=== PATIENT | female | born 1955 | race Caucasian/White ===

== ENCOUNTER 2018-04-05 21:00 | Inpatient (IN) ==
[2018-04-05 21:33] LABS: Basophils # 0.1 K/mm3 (0-0.2); Basophils % 0.2 % (0.1-2.0); Eosinophils % 0.1 % (0.1-12.0); Hematocrit 40.2 % (37.0-47.0); Lymphocytes # 1.6 K/mm3 (0.7-4.5); Lymphocytes % 6.6 K/mm3 (10-50); Mean Corpuscular HGB Conc 32.4 g/dL (31.8-35.4); Mean Corpuscular Hemoglobin 28.3 pg (27.0-31.2); Mean Corpuscular Volume 87.4 fl (81-99); Mean Platelet Volume 11.2 fl (7.4-10.4); Monocytes # 0.8 K/mm3 (0.1-1.0); Monocytes % 3.4 % (1.7-9.3); Neutrophils # 21.6 K/mm3 (1.8-7.8); Neutrophils % 89.7 % (37.0-80.0); Platelet Count 75 K/mm3 (142-424); White Blood Count 24.1 K/mm3 (4.8-10.8)
[2018-04-05 21:41] LABS: Lymphocytes % 11 % (10-50); Neutrophils % 76 % (42-76); RBC Morphology Normal; Total Cells Counted 100
[2018-04-05 21:46] LABS: Albumin Level 3.1 gm/dL (3.4-5.0); Albumin/Globulin Ratio 0.8 (1.1-1.8); Anion Gap 13.9 mEq/L (5-15); Bilirubin,Total 1.7 mg/dL (0.2-1.0); Calcium 8.8 mg/dL (8.5-10.1); Globulin 4.1 gm/dl (1.3-3.2); Potassium 3.9 mmoL/L (3.5-5.1); Total Protein,Serum 7.2 gm/dL (6.4-8.2)
[2018-04-05 22:45] LABS: Microscopic, Urine URINE MICROSCOPIC (MICROSCOPIC)
[2018-04-05 22:47] LABS: Appearance,Urine CLEAR (Clear); Bilirubin,Urine Negative (Negative); Blood, Urine Negative (Negative); Color,Urine YELLOW (Yellow); Glucose,Urine (UA) Negative (Negative); Ketones,Urine TRACE (Negative); Leukocyte Esterase,Urine Negative (Negative); Protein,Urine Negative (Negative); Specific Gravity, Urine 1.015 (1.005-1.030); Urobilinogen,Urine 0.2 EU/dl (0.2)
--- NOTE | 2018-04-05 23:10 | Emergency Department Note ---
ED Disposition Clinical Impression: Diabetes mellitus, insulin dependent (IDDM), controlled, Renal insufficiency, Hemoptysis CAP (community acquired pneumonia) Qualifiers: Laterality: left Lung location: upper lobe of lung Qualified Code(s): J18.1 - Lobar pneumonia, unspecified organism CVA (cerebrovascular accident) Qualifiers: CVA mechanism: unspecified Qualified Code(s): I63.9 - Cerebral infarction, unspecified Disposition: Admitted as Observation Condition on Discharge: Good Referrals: Albaro King [Primary Care Provider] - - Critical Care Critical Care Time: No Attestation: On 04/05/18, the high probability of a clinically significant, sudden or life threatening deterioration of the following system(s) required my full and direct attention, intervention and personal management. The time I documented below is in addition to time spent performing reported procedures but includes the following listed in this critical care notation. Medical Decision Making - Medical Records Medical records reviewed: Yes: I reviewed the patient's medical records. - Jack Inquiry Pt receiving controlled substance: No Vital Signs: 04/05/18 21:05 04/05/18 21:54 04/05/18 22:22 Temperature 99.6 F Temperature Source Oral Pulse Rate [Right Brachial] 89 84 72 Respiratory Rate 14 16 16 Blood Pressure [Right Arm] 148/73 121/84 143/68 Blood Pressure Mean [Right Arm] 98 96 93 Blood Pressure Source [Right Arm] Blood Pressure Position [Right Arm] 02 Sat by Pulse Oximetry 97 97 92 L Oxygen Delivery Method Room Air 04/05/18 22:29 04/05/18 23:30 Temperature 101.0 F H 99.9 F H Temperature Source Rectal Oral Pulse Rate [Right Brachial] 89 78 Respiratory Rate 12 16 Blood Pressure [Right Arm] 143/68 114/56 Blood Pressure Mean [Right Arm] 93 75 Blood Pressure Source [Right Arm] Automatic Cuff Blood Pressure Position [Right Arm] Supine 02 Sat by Pulse Oximetry 92 L 96 Oxygen Delivery Method Room Air Room Air - Lab Data Lab results reviewed: Yes: I reviewed the patient's lab results. Lab Results 04/05/18 21:10: WBC 24.1 H*, RBC 4.60, Hgb 13.0, Hct 40.2, MCV 87.4, MCH 28.3, MCHC 32.4, RDW 14.0, Plt Count 75 L, MPV 11.2 H, Neut % (Auto) 89.7 H, Lymph % (Auto) 6.6 L, [place] % (Auto) 3.4, Eos % (Auto) 0.1, Baso % (Auto) 0.2, Neut # (Auto) 21.6 H, Lymph # (Auto) 1.6, [place]ayer # (Auto) 0.8, Eos # (Auto) 0.0, Baso # (Auto) 0.1, Total Counted 100, Neutrophils % (Manual) 76, Band Neutrophils % 13.0 H, Lymphocytes % (Manual) 11, Platelet Estimate Slight decrease, RBC Morphology Normal 04/05/18 21:10: Sodium 139, Potassium 3.9, Chloride 102, Carbon Dioxide 27, Anion Gap 13.9, BUN 17, Creatinine 1.22 H, Estimated Creat Clear 65, Estimated GFR 45 L, Est GFR ( Amer) 54 L, Glucose 146 H, Calcium 8.8, Total Bilirubin 1.7 H, AST 6 L, ALT 15, Alkaline Phosphatase 86, Total Protein 7.2, Albumin 3.1 L, Globulin 4.1 H, Albumin/Globulin Ratio 0.8 L 04/05/18 21:10: Lactate 2.9 H 04/05/18 21:10: Troponin I < 0.02 04/05/18 22:40: Urine Color Yellow, Urine Appearance Clear, Urine pH 6.0, Ur Specific [place] 1.015, Urine Protein Negative, Urine Glucose (UA) Negative, Urine Ketones Trace, Urine Blood Negative, Urine Nitrate Negative, Urine Bilirubin Negative, Urine Urobilinogen 0.2, Ur Leukocyte Esterase Negative, Urine WBC 3-5, Ur Squamous Epith Cells 3-5 Result diagrams: 04/05/18 21:10 04/05/18 21:10 Orders (Tests/Meds): ED MEDICATIONS Generic Name Dose Route Start Last Admin Trade Name Freq PRN Reason Stop Dose Admin Sodium Chloride 3 ml 04/05/18 21:14 Sodium Chloride 3% 15ml Neb IH 05/05/18 21:13 ONCE PRN INDUCE SPUTUM COLLECTION Discontinued Medications Generic Name Dose Route Start Last Admin Trade Name Freq PRN Reason Stop Dose Admin Acetaminophen 1,000 mg 04/05/18 22:36 04/05/18 22:37 Tylenol 500mg Tablet PO 04/05/18 22:37 1,000 mg ONCE ONE Administration Sodium Chloride 1,000 mls @ 999 mls/hr 04/05/18 21:15 04/05/18 21:15 Sod Chlor 0.9% 1000ml Bag IV 04/05/18 22:15 999 mls/hr .[id number] MARIANA Administration Methylprednisolone Sodium Succinate 125 mg 04/05/18 21:14 04/05/18 21:15 Solu-Medrol 125mg/2ml Vial IV 04/05/18 21:15 125 mg ONCE ONE Administration ORDERS Category Date Time Status CTA Chest [CT angio chest] Stat Cat Scan 04/05/18 22:03 Taken XR chest portable Stat Exams 04/05/18 21:14 Taken UA [Urinalysis and Microscopic] Stat Lab 04/05/18 22:40 Ordered Blood Culture Stat Micro 04/05/18 21:10 Ordered Sputum Culture & Gram Stain Stat Micro 04/05/18 22:23 Ordered 12-lead EKG Request [ECG Request by /Sarah] Stat Y 04/05/18 21:19 Ordered - Radiology Data #1 Image(s): Chest Image Reviewed: Yes I reviewed the patient's radiology image Preliminary Findings: Abnormal (lt sided changes ) - CT Data CT Scan: Chest Time Received: 23:[address] Reviewed: Yes: I have viewed the radiologist's interpretation Preliminary Findings: Abnormal (see report ) - ECG Data Tracing #1 I reviewed this ECG and interpreted as documented below: Normal Sinus Rhythm: Yes Ischemic changes: non-specific ST-T wave changes - Physician Consults Physician Consulted: sound Reason -: Admission Resp/SOB HPI - General Chief Complaint: Upper Respiratory Infection Stated Complaint: Coughing up blood Time Seen by Provider: 04/05/18 21:10 Mode of Arrival: Wheelchair Source of Information: Patient, Relative, Medical Record Limitations: Physical Limitations Description of Symptoms (Recalled from ER Triage Doc. by RN): Coughing up blood since this afternoon. Reports pt has had ear pain, and sinus pressure/congestion for about a week. Reports cough as well. - History of Present Illness pt with progressive cough with episode of hemoptysis tonight - has sig hx of iddm and prev cva with lt sided residual MD Complaint: shortness of breath, cough Onset (ago): day(s) Context: recent illness Severity: moderate Known history of: diabetes, recurrent pneumonia Associated symptoms: hemoptysis Treatment prior to arrival: none - Related Data Home oxygen amount: none Home Medications Medication Instructions Recorded Confirmed Amlodipine Besylate [Amlodipine 10 mg PO DAILY 04/05/18 04/05/18 10mg Tab] Atorvastatin Calcium [Atorvastatin 40 mg PO HS 04/05/18 04/05/18 40mg Tab] Citalopram Hydrobromide 20 mg PO DAILY 04/05/18 04/05/18 [Citalopram HBr] Gabapentin [Gabapentin 300mg Cap] 300 mg PO BID 04/05/18 04/05/18 Hydralazine HCl [Hydralazine HCl 50 mg PO DAILY 04/05/18 04/05/18 25mg Tablet] Insulin Glargine,Hum.rec.anlog 15 unit SQ HS 04/05/18 04/05/18 [Basaglar Kwikpen U-100] Lisinopril [Lisinopril 10mg Tab] 10 mg PO DAILY 04/05/18 04/05/18 Metoprolol Tartrate 100 mg PO DAILY 04/05/18 04/05/18 Allergies Allergy/AdvReac Type Severity Reaction Status Date / Time No Known Allergies Allergy Verified 04/05/18 21:10 - Well's Criteria PE Score Clinical signs/symptoms of DVT: No PE is #1 diagnosis or equally likely: Yes Heart rate is > 100: No Immobile at least 3 days, or surgery in past 4 wks: No Previously, obj. diagnosed PE or DVT: No Hemoptysis: Yes Malignancy w/Rx within 6mo, or palliative: No PE Score: 4 [facility] History I have reviewed the patient's past medical history: Yes Medical History: Reports:: Diabetes Mellitus Type 2 Denies:: Cancer, Diabetes Mellitus Type 1, MRSA Amputation: No Fractures: No - Social History Smoking Status: Never smoker Alcohol Intake: never - Psychiatric History Expresses thoughts of harming self/others: None Suicide Plan Description: No Plan ROS Obtained: Yes All systems reviewed & no additional complaints - Constitutional Constitutional: Denies headache(s) - Eyes Eyes: Denies change in vision - ENT Ears, Nose, Mouth, and Throat: Denies sore throat - Cardiovascular Cardiovascular: Denies chest pain - Respiratory Respiratory: Yes as per HPI, Yes cough, Yes dyspnea, Yes coughing up blood - Gastrointestinal Gastrointestingal: Denies: abdominal pain, diarrhea, nausea, vomiting - Genitourinary Female Genitourinary: Denies hematuria - Musculoskeletal Musculoskeletal: Denies joint pain, Denies limited range of motion - Integumentary/Breasts Skin/Breast: Denies rash - Neurologic Neurologic: Denies seizure-like activity, Reports other (s/p cva ) Physical Exam - General General appearance: in no apparent distress - Head Head exam: normocephalic - Eye Eye exam: Present: PERRL, EOMI - ENT ENT exam: Present: mucous membranes dry - Neck Neck exam: Present: trachea midline - Respiratory Respiratory exam: Present: other (dec bs bilat ). Absent: respiratory distress - Cardiovascular Cardiovascular exam: Present: regular rate, systolic murmur, +S4 - Abdominal Exam Abdominal exam: Present: soft - Extremities Exam Extremities exam: Absent: calf tenderness - Neurological Exam Neurological exam: Present: alert, CN II-XII intact - Psychiatric Psychiatric exam: Present: normal affect - Skin Skin exam: Absent: rash
[2018-04-06 06:12] LABS: Anion Gap 10.6 mEq/L (5-15); Blood Urea Nitrogen 18 mg/dL (7-18); Calcium 8.3 mg/dL (8.5-10.1); Carbon Dioxide 25 mmol/L (21.0-32.0); Chloride 107 mmol/L (98-107); Glucose 186 mg/dL (74-106); Potassium 3.6 mmoL/L (3.5-5.1); Sodium 139 mmol/L (136-145)
[2018-04-06 06:19] LABS: Basophils % 0.1 % (0.1-2.0); Eosinophils # 0.2 K/mm3 (0.0-0.4); Eosinophils % 0.7 % (0.1-12.0); Hematocrit 37.2 % (37.0-47.0); Hemoglobin 12.1 g/dL (12.2-16.2); Lymphocytes % 3.8 K/mm3 (10-50); Mean Corpuscular HGB Conc 32.6 g/dL (31.8-35.4); Mean Corpuscular Hemoglobin 28.4 pg (27.0-31.2); Mean Corpuscular Volume 87.2 fl (81-99); Mean Platelet Volume 11.7 fl (7.4-10.4); Monocytes # 0.5 K/mm3 (0.1-1.0); Monocytes % 2.2 % (1.7-9.3); Neutrophils # 23.3 K/mm3 (1.8-7.8); Neutrophils % 93.3 % (37.0-80.0); Platelet Count 103 K/mm3 (142-424); Red Blood Count 4.26 M/mm3 (4.20-5.40); White Blood Count 24.9 K/mm3 (4.8-10.8)
--- NOTE | 2018-04-06 07:20 | Pharmacy Consult Notes ---
[facility] Pharmacy VTE Monitoring - Patient Demographics Admission date: 04/06/18 Report Date: 04/06/18 Time: 07:20 Allergies/Adverse Reactions: Patient Allergies No Known Allergies Allergy (Verified 04/05/18 21:10) Height: 1.5 m Weight: 76.43 kg Patient Problems: Current Active Problems CAP (community acquired pneumonia) (Acute) Diabetes mellitus, insulin dependent (IDDM), controlled (Acute) Renal insufficiency (Acute) Hemoptysis (Acute) CVA (cerebrovascular accident) (Acute) - VTE Risk Labs: VTE Related Lab Results Hgb 12.1 g/dL (12.2-16.2) L 04/06/18 05:25 Hct 37.2 % (37.0-47.0) 04/06/18 05:25 Plt Count 103 K/mm3 (142-424) L D 04/06/18 05:25 BUN 18 mg/dL (7-18) 04/06/18 05:25 Creatinine 0.97 mg/dL (0.55-1.02) D 04/06/18 05:25 Estimated Creat Clear 74 mL/min (0-300) 04/06/18 05:25 Was VTE Risk Assessment Performed: Yes VTE Score: 7 VTE Risk Level: Moderate Risk - Prophylaxis VTE Prophylaxis Ordered?: Yes Types of VTE Prophylaxis: TEDS Knee High Location of Applied Device: Bilateral Lower Extremeties - VTE Diagnosis Confirmed Treatment or plan recommended: Continue Current Treatment
--- NOTE | 2018-04-06 08:33 | History & Physical Report ---
*Admission Date: 04/06/18 <Elyse Peterson 04/06/18 08:50> *Chief complaint: Blood in her sputum <Elyse Peterson 04/06/18 08:50> *History of present illness: Ms. 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 She denies that she was short of breath but states that she had a fever at home. She does deny chest pain as well. She states that she has had quite a bit of sinus drainage and feels that the blood-tinged sputum is from PND. She states she gets pneumonia every March. Her primary care physician is in [place]. She has recently moved to [place] and is living with her daughter. She has just begun physical therapy again and is able to walk about 100 feet with a walker. She is also been compla ining of left upper molar pain. She has been to the dentist who wanted to pull the tooth. She lost her insurance and has not followed up. This morning patient is feeling somewhat better. She states she had a fever last night. She did sleep some. She is eating and drinking without difficulty. She continues to deny chest pain, shortness of breath. She has not coughed up any more blood. She describes her sputum as being blood streaked. <Elyse Peterson 04/06/18 08:58> [facility] History Medical History: Reports:: Cerebrovascular Accident, Diabetes Mellitus Type 2, Hypertension, Ulcer Denies:: Cancer, Diabetes Mellitus Type 1, MRSA <Elyse Peterson 04/06/18 08:50> Other Medical History: Reports: Arthritis <Elyse Peterson 04/06/18 08:50> Other Surgeries: Yes: Appendectomy, Cholecystectomy, <KristenElyse 04/06/18 08:50> Amputation: No <Peterson,Elyse 04/06/18 08:50> Fractures: No <PetersonElyse 04/06/18 08:50> - *Social History Educational Level: Completed High School <KristenElyse 04/06/18 08:50> Smoking Status: Never smoker <KristenElyse 04/06/18 08:50> Alcohol Intake: never <Elyse Peterson 04/06/18 08:50> Occupational Status: disabled <Elyse Peterson 04/06/18 08:50> Housing: house <Elyse Peterson 04/06/18 08:50> Household Members: family <Elyse Peterson 04/06/18 08:50> - Psychiatric History Expresses thoughts of harming self/others: None <Elyse Peterson 04/06/18 08:50> Suicide Plan Description: No Plan <Elyse Peterson 04/06/18 08:50> *Family Hx:: Cancer, Coronary Artery Disease, Heart Attack, Hyperlipidemia, Hypertension, Stroke <Elyse Peterson 04/06/18 08:50> Review of Systems - Constitutional Reports headache(s) <Elyse Peterson 04/06/18 08:50> - ENT Reports ear pain, Reports facial pain <Elyse Peterson 04/06/18 08:50> Comments: She has pain in her left upper molar. She is seeing the dentist who planned to pull it but then she lost her insurance. <Elyse Peterson 04/06/18 08:50> - *Cardiovascular Denies chest pain, Denies shortness of breath, Denies generalized swelling, Denies leg swelling <Elyse Peterson 04/06/18 08:50> - *Respiratory Reports coughing up blood, Denies change in phlegm color, Denies chest congestion, Denies cough, Denies shortness of breath <Elyse Peterson 04/06/18 08:50> - *Gastrointestinal Reports black, tarry stools, Denies change in bowel habits, Denies constipation, Denies heartburn, Denies vomiting blood, Denies nausea, Denies vomiting <Elyse Peterson 04/06/18 08:50> - *Genitourinary Denies difficulty urinating, Denies painful urination, Denies urinary urgency <Elyse Peterson 04/06/18 08:50> - *Musculoskeletal Reports abnormal walking <Elyse Peterson 04/06/18 08:50> Comments: Is working with physical therapy. Can walk 100 feet now with a walker and assistance. <PetersonElyse 04/06/18 08:50> - *Neurologic Reports other (s/p cva ), Denies headache(s), Denies seizure-like activity <Elyse Peterson - 04/06/18 08:50> Meds Home Medications Medication Instructions Recorded Confirmed Type Amlodipine Besylate [Amlodipine 10 mg PO DAILY 04/05/18 04/06/18 History 10mg Tab] Atorvastatin Calcium [Atorvastatin 40 mg PO HS 04/05/18 04/06/18 History 40mg Tab] Citalopram Hydrobromide 20 mg PO DAILY 04/05/18 04/06/18 History [Citalopram HBr] Gabapentin [Gabapentin 300mg Cap] 300 mg PO BID 04/05/18 04/06/18 History Hydralazine HCl [Hydralazine HCl 50 mg PO DAILY 04/05/18 04/06/18 History 25mg Tablet] Insulin Glargine,Hum.rec.anlog 15 unit SQ HS 04/05/18 04/06/18 History [Basaglar Kwikpen U-100] Lisinopril [Lisinopril 10mg Tab] 10 mg PO DAILY 04/05/18 04/06/18 History Metoprolol Tartrate 100 mg PO DAILY 04/05/18 04/06/18 History <WernerWalia - 04/06/18 14:12> Allergies Allergy/AdvReac Type Severity Reaction Status Date / Time No Known Allergies Allergy Verified 04/05/18 21:10 <Wali Calderaa - 04/06/18 14:12> Exam Vital signs and Labs for Last 24 Hours: Temp Pulse Resp BP Pulse Ox 98.4 F 81 16 113/52 97 04/06/18 12:00 04/06/18 13:57 04/06/18 12:00 04/06/18 12:00 04/06/18 13:57 Laboratory Results - last 24 hr 04/05/18 21:10: WBC 24.1 H*, RBC 4.60, Hgb 13.0, Hct 40.2, MCV 87.4, MCH 28.3, MCHC 32.4, RDW 14.0, Plt Count 75 L, MPV 11.2 H, Neut % (Auto) 89.7 H, Lymph % (Auto) 6.6 L, [place] % (Auto) 3.4, Eos % (Auto) 0.1, Baso % (Auto) 0.2, Neut # (Auto) 21.6 H, Lymph # (Auto) 1.6, [place] # (Auto) 0.8, Eos # (Auto) 0.0, Baso # (Auto) 0.1, Total Counted 100, Neutrophils % (Manual) 76, Band Neutrophils % 13.0 H, Lymphocytes % (Manual) 11, Platelet Estimate Slight decrease, RBC Morphology Normal 04/05/18 21:10: Sodium 139, Potassium 3.9, Chloride 102, Carbon Dioxide 27, Anion Gap 13.9, BUN 17, Creatinine 1.22 H, Estimated Creat Clear 65, Estimated GFR 45 L, Est GFR ( Amer) 54 L, Glucose 146 H, Calcium 8.8, Total Bilirubin 1.7 H, AST 6 L, ALT 15, Alkaline Phosphatase 86, Total Protein 7.2, Albumin 3.1 L, Globulin 4.1 H, Albumin/Globulin Ratio 0.8 L 04/05/18 21:10: Lactate 2.9 H 04/05/18 21:10: Troponin I < 0.02 04/05/18 22:40: Urine Color Yellow, Urine Appearance Clear, Urine pH 6.0, Ur Specific [place] 1.015, Urine Protein Negative, Urine Glucose (UA) Negative, Urine Ketones Trace, Urine Blood Negative, Urine Nitrate Negative, Urine Bilirubin Negative, Urine Urobilinogen 0.2, Ur Leukocyte Esterase Negative, Urine WBC 3-5, Ur Squamous Epith Cells 3-5 04/06/18 00:10: Lactate 1.1 04/06/18 02:55: Troponin I < 0.02 04/06/18 05:25: Sodium 139, Potassium 3.6, Chloride 107, Carbon Dioxide 25, Anion Gap 10.6, BUN 18, Creatinine 0.97 D, Estimated Creat Clear 74, Estimated GFR 59, Est GFR ( Amer) 71 D, Glucose 186 H D, Calcium 8.3 L, Magnesium 1.7, Troponin I < 0.02 04/06/18 05:25: WBC 24.9 H*, RBC 4.26, Hgb 12.1 L, Hct 37.2, MCV 87.2, MCH 28.4, MCHC 32.6, RDW 14.0, Plt Count 103 L D, MPV 11.7 H, Neut % (Auto) 93.3 H, Lymph % (Auto) 3.8 L, [place] % (Auto) 2.2, Eos % (Auto) 0.7, Baso % (Auto) 0.1, Neut # (Auto) 23.3 H, Lymph # (Auto) 1.0, [place] # (Auto) 0.5, Eos # (Auto) 0.2, Baso # (Auto) 0.0, Total Counted 100, Neutrophils % (Manual) 97 H, Lymphocytes % (Manual) 3 L, Platelet Estimate Clumped, RBC Morphology Normal 04/06/18 06:33: POC Glucose 177 H 04/06/18 11:05: POC Glucose 259 H <Sound,Aleisha - 04/06/18 14:12> Temp Pulse Resp BP Pulse Ox 98.0 F 75 18 119/92 96 04/06/18 07:47 04/06/18 07:47 04/06/18 07:47 04/06/18 07:47 04/06/18 07:47 Laboratory Results - last 24 hr 04/05/18 21:10: WBC 24.1 H*, RBC 4.60, Hgb 13.0, Hct 40.2, MCV 87.4, MCH 28.3, MCHC 32.4, RDW 14.0, Plt Count 75 L, MPV 11.2 H, Neut % (Auto) 89.7 H, Lymph % (Auto) 6.6 L, [place] % (Auto) 3.4, Eos % (Auto) 0.1, Baso % (Auto) 0.2, Neut # (Auto) 21.6 H, Lymph # (Auto) 1.6, [place] # (Auto) 0.8, Eos # (Auto) 0.0, Baso # (Auto) 0.1, Total Counted 100, Neutrophils % (Manual) 76, Band Neutrophils % 13.0 H, Lymphocytes % (Manual) 11, Platelet Estimate Slight decrease, RBC Morphology Normal 04/05/18 21:10: Sodium 139, Potassium 3.9, Chloride 102, Carbon Dioxide 27, Anion Gap 13.9, BUN 17, Creatinine 1.22 H, Estimated Creat Clear 65, Estimated GFR 45 L, Est GFR ( Amer) 54 L, Glucose 146 H, Calcium 8.8, Total Bilirubin 1.7 H, AST 6 L, ALT 15, Alkaline Phosphatase 86, Total Protein 7.2, Albumin 3.1 L, Globulin 4.1 H, Albumin/Globulin Ratio 0.8 L 04/05/18 21:10: Lactate 2.9 H 04/05/18 21:10: Troponin I < 0.02 04/05/18 22:40: Urine Color Yellow, Urine Appearance Clear, Urine pH 6.0, Ur Specific [place] 1.015, Urine Protein Negative, Urine Glucose (UA) Negative, Urine Ketones Trace, Urine Blood Negative, Urine Nitrate Negative, Urine Bilirubin Negative, Urine Urobilinogen 0.2, Ur Leukocyte Esterase Negative, Urine WBC 3-5, Ur Squamous Epith Cells 3-5 04/06/18 00:10: Lactate 1.1 04/06/18 02:55: Troponin I < 0.02 04/06/18 05:25: Sodium 139, Potassium 3.6, Chloride 107, Carbon Dioxide 25, Anion Gap 10.6, BUN 18, Creatinine 0.97 D, Estimated Creat Clear 74, Estimated GFR 59, Est GFR ( Amer) 71 D, Glucose 186 H D, Calcium 8.3 L, Magnesium 1.7, Troponin I < 0.02 04/06/18 05:25: WBC 24.9 H*, RBC 4.26, Hgb 12.1 L, Hct 37.2, MCV 87.2, MCH 28.4, MCHC 32.6, RDW 14.0, Plt Count 103 L D, MPV 11.7 H, Neut % (Auto) 93.3 H, Lymph % (Auto) 3.8 L, [place] % (Auto) 2.2, Eos % (Auto) 0.7, Baso % (Auto) 0.1, Neut # (Auto) 23.3 H, Lymph # (Auto) 1.0, [place] # (Auto) 0.5, Eos # (Auto) 0.2, Baso # (Auto) 0.0 04/06/18 06:33: POC Glucose 177 H <Elyse Peterson - 04/06/18 08:50> I & O for Last 24 hours: Intake & Output 04/04/18 04/05/18 04/06/18 04/07/18 11:59 11:59 11:59 11:59 Intake Total 1000 / 1000 Balance 1000 / 1000 Weight 168 lb 8 oz <Aleisha Caldera - 04/06/18 14:12> Intake & Output 04/03/18 04/04/18 04/05/18 04/06/18 11:59 11:59 11:59 11:59 Intake Total 1000 / 1000 Balance 1000 / 1000 Weight 168 lb 8 oz <Elyse Peterson - 04/06/18 08:50> Microbiology Reports for the Last 24 Hours: Microbiology 04/05/18 21:35 Sputum - Expectorated Sputum Gram Stain - Final 04/05/18 21:35 Sputum - Expectorated Sputum Sputum Culture - Preliminary <Aleisha Caldera - 04/06/18 14:12> Microbiology 04/05/18 21:35 Sputum - Expectorated Sputum Gram Stain - Final 04/05/18 21:35 Sputum - Expectorated Sputum Sputum Culture - Preliminary <Elyse Peterson - 04/06/18 08:50> Radiology Reports for the Last 24 Hours: 04/05/2018 chest x-ray IMPRESSION: Left perihilar mass versus dense pneumonia. Suggest CT for further evaluation 04/06/2018 CTA of chest IMPRESSION: 1. Left upper lobe pneumonia. Recommend follow until clear 2. No evidence of pulmonary embolus <Elyse Peterson 04/06/18 08:50> - Constitutional no acute distress <Elyse Peterson 04/06/18 08:50> - *Routine HEENT Exam Head: Present: normocephalic, atraumatic. Absent: facial swelling <Elyse Peterson 04/06/18 08:50> Eye: Present: PERRL, proptosis <Elyse Peterson 04/06/18 08:50> ENT: Present: mucous membranes moist, oropharynx clear, dentition normal, nares patent, TM's clear bilaterally. Absent: sinus tenderness <Elyse Peterson 04/06/18 08:50> - *Routine Neck Exam Present: supple, full ROM. Absent: carotid bruit, lymphadenopathy, thyromegaly <Elyse Peterson 04/06/18 08:50> - *Routine Respiratory Exam Comments: Bilateral crackles greater on the left <Elyse Peterson 04/06/18 08:50> - *Routine Cardiovascular Exam Present: RRR <Elyse Peterson - 04/06/18 08:50> - *Routine Abdominal Exam Present: soft, normoactive bowel sounds, hernia. Absent: tenderness, distended <Elyse Peterson - 04/06/18 08:50> - *Routine Extremities Exam Absent: edema, calf tenderness <Elyse Peterson - 04/06/18 08:50> - *Routine Neurological Exam Present: alert, oriented X3 <Elyse Peterson - 04/06/18 08:50> H&P: Result - Impressions Laboratory Tests 04/05/18 04/06/18 21:10 05:25 WBC 24.1 H* 24.9 H* <Aleisha Caldera - 04/06/18 14:12> Assessment and Plan (1) CAP (community acquired pneumonia) Current visit: Yes Status: Acute Qualifiers: Laterality: left Lung location: upper lobe of lung Qualified Code(s): J18.1 - Lobar pneumonia, unspecified organism Category: Medical Code(s): J18.9 - Pneumonia, unspecified organism (2) CVA (cerebrovascular accident) Current visit: Yes Status: Chronic Qualifiers: CVA mechanism: unspecified Qualified Code(s): I63.9 - Cerebral infarction, unspecified Category: Medical Code(s): I63.9 - Cerebral infarction, unspecified (3) Diabetes mellitus, insulin dependent (IDDM), controlled Current visit: Yes Status: Chronic Category: Medical Code(s): E11.9 - Type 2 diabetes mellitus without complications; Z79.4 - app[employer] estate (current) use of insulin (4) Hemoptysis Current visit: Yes Status: Acute Category: Medical Code(s): R04.2 - Hemoptysis (5) Renal insufficiency Current visit: Yes Status: Chronic Category: Medical Code(s): N28.9 - Disorder of kidney and ureter, unspecified <Elyse Peterson - 04/06/18 08:54> (1) Sepsis Start date: 04/05/18 Current visit: Yes Status: Acute Qualifiers: Sepsis type: sepsis due to unspecified organism Qualified Code(s): A41.9 - Sepsis, unspecified organism Category: Medical Code(s): A41.9 - Sepsis, unspecified organism (2) CAP (community acquired pneumonia) Current visit: Yes Status: Acute Qualifiers: Laterality: left Lung location: upper lobe of lung Qualified Code(s): J18.1 - Lobar pneumonia, unspecified organism Category: Medical Code(s): J18.9 - Pneumonia, unspecified organism (3) CVA (cerebrovascular accident) Current visit: Yes Status: Chronic Qualifiers: CVA mechanism: unspecified Qualified Code(s): I63.9 - Cerebral infarction, unspecified Category: Medical Code(s): I63.9 - Cerebral infarction, unspecified (4) Diabetes mellitus, insulin dependent (IDDM), controlled Current visit: Yes Status: Chronic Category: Medical Code(s): E11.9 - Type 2 diabetes mellitus without complications; Z79.4 - residential (current) use of insulin (5) Hemoptysis Current visit: Yes Status: Acute Category: Medical Code(s): R04.2 - Hemoptysis (6) Renal insufficiency Current visit: Yes Status: Chronic Category: Medical Code(s): N28.9 - Disorder of kidney and ureter, unspecified <Aleisha Caldera - 04/06/18 14:12> - Assessment and plan all Dx Assessment and Plan for all problems:: Will change azithromycin and rocephin to levaquin due to unresponsiveness in WBC count. Will also add fluconazole IV for covering yeast in the sputum culture. Sepsis resolved at this point but still have elevated WBC. Will get records from [facility] about her chronic elevated WBC. <Aleisha Caldera - 04/06/18 14:12> continue with antibiotics and IV fluids. Will start duo nebs as well. Home medicines have been ordered. <Elyse Peterson - 04/06/18 08:58>
[2018-04-06 09:19] LABS: Lymphocytes % 3 % (10-50); Neutrophils % 97 % (42-76); Total Cells Counted 100
[2018-04-06 09:20] LABS: RBC Morphology Normal
[2018-04-07 08:00] LABS: Basophils % 0.1 % (0.1-2.0); Hematocrit 33.9 % (37.0-47.0); Hemoglobin 10.9 g/dL (12.2-16.2); Lymphocytes # 2.2 K/mm3 (0.7-4.5); Lymphocytes % 11.4 K/mm3 (10-50); Mean Corpuscular HGB Conc 32.3 g/dL (31.8-35.4); Mean Corpuscular Hemoglobin 28.5 pg (27.0-31.2); Mean Corpuscular Volume 88.1 fl (81-99); Mean Platelet Volume 11.1 fl (7.4-10.4); Monocytes # 0.7 K/mm3 (0.1-1.0); Monocytes % 3.6 % (1.7-9.3); Neutrophils # 16.3 K/mm3 (1.8-7.8); Neutrophils % 84.8 % (37.0-80.0); Platelet Count 117 K/mm3 (142-424); Red Blood Count 3.85 M/mm3 (4.20-5.40); White Blood Count 19.2 K/mm3 (4.8-10.8)
--- NOTE | 2018-04-07 08:20 | Progress Note ---
<Elyse Peterson - Last Filed: 04/07/18 08:16> Internal Medicine - PN: Subj *Date: 04/07/18 *Time: 08:15 Interval history: Patient states she has an increase in her cough. She did sleep some. She denies shortness of breath and chest pain. She is wondering when she can go home. She is eating without difficulty. Physical therapy did come yesterday and she did walk in the room. She is voiding without difficulty. Bowels have not moved. Sputum culture is pending. White blood cells decrease to 19.2. She has been afebrile Exam Vital signs and Labs for Last 24 Hours: Temp Pulse Resp BP Pulse Ox 98.2 F 73 16 124/67 95 04/07/18 07:58 04/07/18 07:58 04/07/18 07:58 04/07/18 07:58 04/07/18 07:58 Laboratory Results - last 24 hr 04/06/18 05:25: Total Counted 100, Neutrophils % (Manual) 97 H, Lymphocytes % (Manual) 3 L, Platelet Estimate Clumped, RBC Morphology Normal 04/06/18 11:05: POC Glucose 259 H 04/06/18 16:30: POC Glucose 228 H 04/06/18 22:11: POC Glucose 261 H 04/07/18 06:42: POC Glucose 145 H 04/07/18 07:49: WBC 19.2 H, RBC 3.85 L, Hgb 10.9 L, Hct 33.9 L, MCV 88.1, MCH 28.5, MCHC 32.3, RDW 14.0, Plt Count 117 L, MPV 11.1 H, Neut % (Auto) 84.8 H, Lymph % (Auto) 11.4, [place] % (Auto) 3.6, Eos % (Auto) 0.0 L, Baso % (Auto) 0.1, Neut # (Auto) 16.3 H, Lymph # (Auto) 2.2, [place] # (Auto) 0.7, Eos # (Auto) 0.0, Baso # (Auto) 0.0 I & O for Last 24 hours: Intake & Output 04/04/18 04/05/18 04/06/18 04/07/18 11:59 11:59 11:59 11:59 Intake Total 1000 / 1000 1925 / 1925 Balance 999 / 999 Weight 168 lb 8 oz 161 lb 1 oz Microbiology Reports for the Last 24 Hours: Microbiology 04/05/18 21:35 Sputum - Expectorated Sputum Gram Stain - Final 04/05/18 21:35 Sputum - Expectorated Sputum Sputum Culture - Preliminary Gram Negative Rods - Constitutional no acute distress Comments: Family is at bedside - *Routine Respiratory Exam Present: crackles (Bilateral basilar crackles greater on the left) - *Routine Cardiovascular Exam Present: RRR - *Routine Abdominal Exam Present: soft, normoactive bowel sounds. Absent: tenderness - *Routine Extremities Exam Present: full ROM. Absent: edema, tenderness - *Routine Neurological Exam Present: alert, oriented X3 Assessment and Plan (1) Sepsis Start date: 04/05/18 Current visit: Yes Status: Acute Qualifiers: Sepsis type: sepsis due to unspecified organism Qualified Code(s): A41.9 - Sepsis, unspecified organism Category: Medical Code(s): A41.9 - Sepsis, unspecified organism (2) CAP (community acquired pneumonia) Current visit: Yes Status: Acute Qualifiers: Laterality: left Lung location: upper lobe of lung Qualified Code(s): J18.1 - Lobar pneumonia, unspecified organism Category: Medical Code(s): J18.9 - Pneumonia, unspecified organism (3) CVA (cerebrovascular accident) Current visit: Yes Status: Chronic Qualifiers: CVA mechanism: unspecified Qualified Code(s): I63.9 - Cerebral infarction, unspecified Category: Medical Code(s): I63.9 - Cerebral infarction, unspecified (4) Diabetes mellitus, insulin dependent (IDDM), controlled Current visit: Yes Status: Chronic Category: Medical Code(s): E11.9 - Type 2 diabetes mellitus without complications; Z79.4 - intermediate frame tender (current) use of insulin (5) Hemoptysis Current visit: Yes Status: Acute Category: Medical Code(s): R04.2 - Hemoptysis (6) Renal insufficiency Current visit: Yes Status: Chronic Category: Medical Code(s): N28.9 - Disorder of kidney and ureter, unspecified - Assessment and plan all Dx Assessment and Plan for all problems:: Will continue with antibiotics and duo nebs. Will order cough medicine. <Sound,Aleisha - Last Filed: 04/07/18 09:16> Exam Vital signs and Labs for Last 24 Hours: Temp Pulse Resp BP Pulse Ox 98.2 F 73 16 124/67 95 04/07/18 07:58 04/07/18 07:58 04/07/18 07:58 04/07/18 07:58 04/07/18 07:58 Laboratory Results - last 24 hr 04/06/18 05:25: Total Counted 100, Neutrophils % (Manual) 97 H, Lymphocytes % (Manual) 3 L, Platelet Estimate Clumped, RBC Morphology Normal 04/06/18 11:05: POC Glucose 259 H 04/06/18 16:30: POC Glucose 228 H 04/06/18 22:11: POC Glucose 261 H 04/07/18 06:42: POC Glucose 145 H 04/07/18 07:49: WBC 19.2 H, RBC 3.85 L, Hgb 10.9 L, Hct 33.9 L, MCV 88.1, MCH 28.5, MCHC 32.3, RDW 14.0, Plt Count 117 L, MPV 11.1 H, Neut % (Auto) 84.8 H, Lymph % (Auto) 11.4, [place] % (Auto) 3.6, Eos % (Auto) 0.0 L, Baso % (Auto) 0.1, Neut # (Auto) 16.3 H, Lymph # (Auto) 2.2, [place] # (Auto) 0.7, Eos # (Auto) 0.0, Baso # (Auto) 0.0, Total Counted 100, Neutrophils % (Manual) 84 H, Lymphocytes % (Manual) 10, Monocytes % (Manual) 6, Platelet Estimate Slight decrease, RBC Morphology Normal Laboratory Tests 04/05/18 04/06/18 04/07/18 21:10 05:25 07:49 WBC 24.9 H* 19.2 H Plt Count 75 L 117 L Neut # (Auto) 21.6 H 16.3 H I & O for Last 24 hours: Intake & Output 04/04/18 04/05/18 04/06/18 04/07/18 11:59 11:59 11:59 11:59 Intake Total 1100 / 1100 1924 Balance 1100 / 1100 1924 Weight 168 lb 8 oz 162 lb 6 oz Microbiology Reports for the Last 24 Hours: Microbiology 04/05/18 21:35 Sputum - Expectorated Sputum Gram Stain - Final 04/05/18 21:35 Sputum - Expectorated Sputum Sputum Culture - Preliminary Gram Negative Rods Assessment and Plan (1) Sepsis Start date: 04/05/18 Current visit: Yes Status: Acute Qualifiers: Sepsis type: sepsis due to unspecified organism Qualified Code(s): A41.9 - Sepsis, unspecified organism Category: Medical Code(s): A41.9 - Sepsis, unspecified organism (2) CAP (community acquired pneumonia) Current visit: Yes Status: Acute Qualifiers: Laterality: left Lung location: upper lobe of lung Qualified Code(s): J18.1 - Lobar pneumonia, unspecified organism Category: Medical Code(s): J18.9 - Pneumonia, unspecified organism (3) CVA (cerebrovascular accident) Current visit: Yes Status: Chronic Qualifiers: CVA mechanism: unspecified Qualified Code(s): I63.9 - Cerebral infarction, unspecified Category: Medical Code(s): I63.9 - Cerebral infarction, unspecified (4) Diabetes mellitus, insulin dependent (IDDM), controlled Current visit: Yes Status: Chronic Category: Medical Code(s): E11.9 - Type 2 diabetes mellitus without complications; Z79.4 - [facility] (current) use of insulin (5) Hemoptysis Current visit: Yes Status: Acute Category: Medical Code(s): R04.2 - Hemoptysis (6) Renal insufficiency Current visit: Yes Status: Chronic Category: Medical Code(s): N28.9 - Disorder of kidney and ureter, unspecified - Assessment and plan all Dx Assessment and Plan for all problems:: Will continue IV abx for one more day and then transition to PO, will order colace for constipation. Possible dc either tomorrow or depending on her WBC count.
[2018-04-07 08:59] LABS: Lymphocytes % 10 % (10-50); Monocytes % 6 % (2-9); Neutrophils % 84 % (42-76); Total Cells Counted 100
[2018-04-07 09:02] LABS: RBC Morphology Normal
--- NOTE | 2018-04-08 08:05 | Progress Note ---
<Pippa Rosales - Last Filed: 04/08/18 08:03> Internal Medicine - PN: Subj *Date: 04/08/18 *Time: 08:03 Interval history: Patient states she is feeling well this morning. She slept well and ate most of her breakfast. Her cough has improved and is no longer productive. She denies any shortness of breath. Exam Vital signs and Labs for Last 24 Hours: Temp Pulse Resp BP Pulse Ox 98.4 F 75 18 134/72 95 04/08/18 07:29 04/08/18 07:29 04/08/18 07:29 04/08/18 07:29 04/08/18 07:29 Laboratory Results - last 24 hr 04/07/18 07:49: Total Counted 100, Neutrophils % (Manual) 84 H, Lymphocytes % (Manual) 10, Monocytes % (Manual) 6, Platelet Estimate Slight decrease, RBC Morphology Normal 04/07/18 11:04: POC Glucose 142 H 04/07/18 16:13: POC Glucose 148 H 04/07/18 21:23: POC Glucose 144 H 04/08/18 06:11: POC Glucose 101 I & O for Last 24 hours: Intake & Output 04/05/18 04/06/18 04/07/18 04/08/18 11:59 11:59 11:59 11:59 Intake Total 1100 / 1100 2074 Output Total Balance 1100 / 1100 2073 Weight 168 lb 8 oz 162 lb 6 oz 173 lb 1 oz Microbiology Reports for the Last 24 Hours: Microbiology 04/05/18 21:35 Sputum - Expectorated Sputum Gram Stain - Final 04/05/18 21:35 Sputum - Expectorated Sputum Sputum Culture - Preliminary Gram Negative Rods 04/05/18 21:10 Blood Blood Culture - Preliminary NO GROWTH AFTER 48 HOURS 04/05/18 21:10 Blood Blood Culture - Preliminary NO GROWTH AFTER 48 HOURS - Constitutional no acute distress - *Routine Respiratory Exam Present: rales (bilateral bases but improving, faint rhonchi throughout) - *Routine Cardiovascular Exam Present: RRR - *Routine Abdominal Exam Present: soft, normoactive bowel sounds. Absent: tenderness - *Routine Extremities Exam Absent: edema Assessment and Plan (1) Sepsis Start date: 04/05/18 Current visit: Yes Status: Acute Qualifiers: Sepsis type: sepsis due to unspecified organism Qualified Code(s): A41.9 - Sepsis, unspecified organism Category: Medical Code(s): A41.9 - Sepsis, unspecified organism (2) CAP (community acquired pneumonia) Current visit: Yes Status: Acute Qualifiers: Laterality: left Lung location: upper lobe of lung Qualified Code(s): J18.1 - Lobar pneumonia, unspecified organism Category: Medical Code(s): J18.9 - Pneumonia, unspecified organism (3) CVA (cerebrovascular accident) Current visit: Yes Status: Chronic Qualifiers: CVA mechanism: unspecified Qualified Code(s): I63.9 - Cerebral infarction, unspecified Category: Medical Code(s): I63.9 - Cerebral infarction, unspecified (4) Diabetes mellitus, insulin dependent (IDDM), controlled Current visit: Yes Status: Chronic Category: Medical Code(s): E11.9 - Type 2 diabetes mellitus without complications; Z79.4 - exterminator (current) use of insulin (5) Hemoptysis Current visit: Yes Status: Acute Category: Medical Code(s): R04.2 - Hemoptysis (6) Renal insufficiency Current visit: Yes Status: Chronic Category: Medical Code(s): N28.9 - Disorder of kidney and ureter, unspecified - Assessment and plan all Dx Assessment and Plan for all problems:: Will continue abx and await sputum culture and CBC this am. <Aleisha Caldera - Last Filed: 04/08/18 09:09> Exam Vital signs and Labs for Last 24 Hours: Temp Pulse Resp BP Pulse Ox 98.4 F 75 18 134/72 95 04/08/18 07:29 04/08/18 07:29 04/08/18 07:29 04/08/18 07:29 04/08/18 07:29 Laboratory Results - last 24 hr 04/07/18 11:04: POC Glucose 142 H 04/07/18 16:13: POC Glucose 148 H 04/07/18 21:23: POC Glucose 144 H 04/08/18 06:11: POC Glucose 101 I & O for Last 24 hours: Intake & Output 04/05/18 04/06/18 04/07/18 04/08/18 11:59 11:59 11:59 11:59 Intake Total 1100 / 1100 2175 / 2174 Output Total Balance 1100 / 1099 217 / 2173 Weight 168 lb 8 oz 162 lb 6 oz 173 lb 1 oz Microbiology Reports for the Last 24 Hours: Microbiology 04/05/18 21:35 Sputum - Expectorated Sputum Gram Stain - Final 04/05/18 21:35 Sputum - Expectorated Sputum Sputum Culture - Preliminary Gram Negative Rods 04/05/18 21:10 Blood Blood Culture - Preliminary NO GROWTH AFTER 48 HOURS 04/05/18 21:10 Blood Blood Culture - Preliminary NO GROWTH AFTER 48 HOURS Assessment and Plan (1) Sepsis Start date: 04/05/18 Current visit: Yes Status: Acute Qualifiers: Sepsis type: sepsis due to unspecified organism Qualified Code(s): A41.9 - Sepsis, unspecified organism Category: Medical Code(s): A41.9 - Sepsis, unspecified organism (2) CAP (community acquired pneumonia) Current visit: Yes Status: Acute Qualifiers: Laterality: left Lung location: upper lobe of lung Qualified Code(s): J18.1 - Lobar pneumonia, unspecified organism Category: Medical Code(s): J18.9 - Pneumonia, unspecified organism (3) CVA (cerebrovascular accident) Current visit: Yes Status: Chronic Qualifiers: CVA mechanism: unspecified Qualified Code(s): I63.9 - Cerebral infarction, unspecified Category: Medical Code(s): I63.9 - Cerebral infarction, unspecified (4) Diabetes mellitus, insulin dependent (IDDM), controlled Current visit: Yes Status: Chronic Category: Medical Code(s): E11.9 - Type 2 diabetes mellitus without complications; Z79.4 - shelter (current) use of insulin (5) Hemoptysis Current visit: Yes Status: Acute Category: Medical Code(s): R04.2 - Hemoptysis (6) Renal insufficiency Current visit: Yes Status: Chronic Category: Medical Code(s): N28.9 - Disorder of kidney and ureter, unspecified - Assessment and plan all Dx Assessment and Plan for all problems:: will await CBC and transition to PO abx if appropriate.
[2018-04-08 11:00] LABS: Basophils % 0.3 % (0.1-2.0); Eosinophils # 0.2 K/mm3 (0.0-0.4); Eosinophils % 1.5 % (0.1-12.0); Hematocrit 37.8 % (37.0-47.0); Hemoglobin 12.1 g/dL (12.2-16.2); Lymphocytes # 1.9 K/mm3 (0.7-4.5); Lymphocytes % 15.2 K/mm3 (10-50); Mean Corpuscular HGB Conc 31.9 g/dL (31.8-35.4); Mean Corpuscular Volume 87.8 fl (81-99); Mean Platelet Volume 11.1 fl (7.4-10.4); Monocytes # 0.5 K/mm3 (0.1-1.0); Monocytes % 4.1 % (1.7-9.3); Neutrophils # 9.8 K/mm3 (1.8-7.8); Neutrophils % 78.8 % (37.0-80.0); Red Blood Count 4.31 M/mm3 (4.20-5.40); White Blood Count 12.5 K/mm3 (4.8-10.8)
[2018-04-08 11:37] LABS: Platelet Count 67 K/mm3 (142-424)
--- NOTE | 2018-04-10 08:29 | Discharge Summary ---
General - General Admission date:: 04/06/18 Discharge date: 04/08/18 HPI HPI: Ms. 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 She denies that she was short of breath but states that she had a fever at home. She does deny chest pain as well. She states that she has had quite a bit of sinus drainage and feels that the blood-tinged sputum is from PND. She states she gets pneumonia every March. Her primary care physician is in [place]. She has recently moved to [place] and is living with her daughter. She has just begun physical therapy again and is able to walk about 100 feet with a walker. She is also been complaining of left upper molar pain. She has been to the dentist who wanted to pull the tooth. She lost her insurance and has not followed up. This morning patient is feeling somewhat better. She states she had a fever last night. She did sleep some. She is eating and drinking without difficulty. She continues to deny chest pain, shortness of breath. She has not coughed up any more blood. She describes her sputum as being blood streaked. Hospital Course Hospital Course: The patient's CXR showed a left perihilar mass vs pneumonia. She had a CTA showing no PE but a EVA pneumonia. She was initially started on azithromycin and rocephin, but this was changed to levaquin due to an unresponsiveness in her WBC count. Fluconazole IV was added covering for yeast that was growing in the sputum culture. She was continued on IV fluids and started on duo nebs as well. The patient began feeling better quickly. She worked with PT and was able to get up and walk in the room. The patient's WBC improved and she was stable to be discharged home on continued abx. Objective Vital signs: Temp Pulse Resp BP Pulse Ox 98.4 F 68 18 139/72 96 04/08/18 15:39 04/08/18 15:39 04/08/18 15:39 04/08/18 15:39 04/08/18 15:39 Narrative: - Constitutional no acute distress - *Routine HEENT Exam Head: Present: normocephalic, atraumatic. Absent: facial swelling Eye: Present: PERRL, proptosis <Elyse Peterson - 04/06/18 08:50> ENT: Present: mucous membranes moist, oropharynx clear, dentition normal, nares patent, TM's clear bilaterally. Absent: sinus tenderness - *Routine Neck Exam Present: supple, full ROM. Absent: carotid bruit, lymphadenopathy, thyromegaly - *Routine Respiratory Exam Comments: Bilateral crackles greater on the left - *Routine Cardiovascular Exam Present: RRR - *Routine Abdominal Exam Present: soft, normoactive bowel sounds, hernia. Absent: tenderness, distended - *Routine Extremities Exam Absent: edema, calf tenderness - *Routine Neurological Exam Present: alert, oriented X3 Results Labs on day of discharge: Labs from last 24 hours 04/08/18 04/08/18 04/08/18 11:21 10:47 06:11 WBC 12.5 H D RBC 4.31 Hgb 12.1 L Hct 37.8 MCV 87.8 MCH 28.0 MCHC 31.9 RDW 14.0 Plt Count 67 L D MPV 11.1 H Neut % (Auto) 78.8 Lymph % (Auto) 15.2 [place] % (Auto) 4.1 Eos % (Auto) 1.5 Baso % (Auto) 0.3 Neut # (Auto) 9.8 H Lymph # (Auto) 1.9 [place] # (Auto) 0.5 Eos # (Auto) 0.2 Baso # (Auto) 0.0 POC Glucose 124 H 101 Preliminary micro results at discharge 04/05/18 21:35 Sputum Culture - Preliminary Sputum - Expectorated Sputum Gram Negative Rods 04/05/18 21:10 Blood Culture - Preliminary Blood NO GROWTH AFTER 48 HOURS 04/05/18 21:10 Blood Culture - Preliminary Blood NO GROWTH AFTER 48 HOURS DS: Diagnosis - Discharge Diagnosis (1) Sepsis Status: Acute (2) CAP (community acquired pneumonia) Status: Acute (3) CVA (cerebrovascular accident) Status: Chronic (4) Diabetes mellitus, insulin dependent (IDDM), controlled Status: Chronic (5) Hemoptysis Status: Acute (6) Renal insufficiency Status: Chronic Discharge Plan - Patient Discharge Instructions ACTIVITY: Continue current activity DIET: continue same diet Patient Instructions: DI for Pneumonia -- Adult - Follow up Plan Follow up with: Aleisha Caldera MD [Staff Physician] - 1 week Disposition: Home, Self-Fdc Medications: Home Medications Medication Instructions Recorded Confirmed Type Amlodipine Besylate [Amlodipine 10 mg PO DAILY 04/05/18 04/06/18 History 10mg Tab] Atorvastatin Calcium [Atorvastatin 40 mg PO HS 04/05/18 04/06/18 History 40mg Tab] Citalopram Hydrobromide 20 mg PO DAILY 04/05/18 04/06/18 History [Citalopram HBr] Gabapentin [Gabapentin 300mg Cap] 300 mg PO BID 04/05/18 04/06/18 History Hydralazine HCl [Hydralazine HCl 50 mg PO DAILY 04/05/18 04/06/18 History 25mg Tablet] Insulin Glargine,Hum.rec.anlog 15 unit SQ HS 04/05/18 04/06/18 History [Basaglar Kwikpen U-100] Lisinopril [Lisinopril 10mg Tab] 10 mg PO DAILY 04/05/18 04/06/18 History Metoprolol Tartrate 100 mg PO DAILY 04/05/18 04/06/18 History Prescriptions/Medication Reconciliation: New Benzonatate [Benzonatate 100mg cap] 200 mg PO Q4HP PRN #21 capsule PRN Reason: cough Fluconazole [Diflucan] 200 mg PO DAILY #7 tablet levoFLOXacin [Levaquin 750mg tablet] 750 mg PO DAILY #7 tablet Albuterol Sulfate [Proair Hfa 90mcg/puff Inh] 2 puffs IH Q4HP PRN #1 inh PRN Reason: Shortness Of Breath Or Wheezing Continue Lisinopril [Lisinopril 10mg Tab] 10 mg PO DAILY Hydralazine HCl [Hydralazine HCl 25mg Tablet] 50 mg PO DAILY Gabapentin [Gabapentin 300mg Cap] 300 mg PO BID Amlodipine Besylate [Amlodipine 10mg Tab] 10 mg PO DAILY Insulin Glargine,Hum.rec.anlog [Basaglar Kwikpen U-100] 15 unit SQ HS Metoprolol Tartrate 100 mg PO DAILY Citalopram Hydrobromide [Citalopram HBr] 20 mg PO DAILY Atorvastatin Calcium [Atorvastatin 40mg Tab] 40 mg PO HS
== END 2018-04-08 18:00 | disposition home or self-care (01) ==
LOC: 2ND 21:00 → ER 21:00 → 2ND 04-06 00:17
PROVIDERS: ADMIT Emergency Medicine; ATTEND Emergency Medicine

== ENCOUNTER → 2018-04-17 12:04 | Outpatient (CLI) | payer MEDICARE, SELFPAY ==
--- NOTE | 2018-04-17 12:14 | CT_ITS ---
CT head/brain wo con HISTORY: ITS.REASON: RT SIDED WEAKNESS ORDERING PHYSICIAN: Aleisha Caldera MD PATIENT AGE: 62 years COMPARISON: None TECHNIQUE: Axial images obtained without contrast. Brain and bone windows reviewed. All CT scans at the facility use one or more dose reduction, viz: automated exposure control, ma/kV adjustment per patient size (including targeted exams where dose is matched to indication, i.e. head), or iterative reconstruction technique. FINDINGS: There is no midline shift or mass effect. Periventricular hypoattenuation is noted consistent with ischemic gliotic change from microvascular disease. There are old bilateral lacunar infarctions of the basal ganglia. Low density changes are present in the anjel on the right at 8 mm consistent with an old lacunar infarction. There is a ill-defined area of increased density within the superior aspect of the thalamus on the right. This could represent a small area of hemorrhage versus an area of mineralization from prior infarction. MRI may be of further value. No mastoid effusion or sinus air-fluid level is evident. IMPRESSION: 1. Periventricular ischemic gliotic changes with old bilateral lacunar infarctions of the basal ganglia. Small acute lacunar infarctions may be masked by these findings and MRI may be of further value. 2. Small area of hyperdensity in the posterior thalamus on the right somewhat ill-defined and not quite is homogeneous as one would expect for hemorrhage however that entity cannot be excluded. No old exams available for comparison. Follow-up recommended Critical result called to Dr. Caldera on 04/17/2018 12:54 PM.
--- NOTE | 2018-04-17 13:33 | MR_ITS ---
MR head/brain wo con HISTORY: ITS.REASON: ACUTE RIGHT-SIDED WEAKNESS, ABNORMAL CT SCAN OF HEAD ORDERING PHYSICIAN: Aleisha Caldera MD PATIENT AGE: 62 years Comparison: None TECHNIQUE: Standard multiplanar multiecho sequences are performed without contrast. FINDINGS: No midline shift or mass effect is evident. There is questionable area of acute blood in the right thalamus. This area shows decreased T1 and decreased T2 signal along with susceptibility artifact on the flash hemo sequences consistent with calcification. There are old bilateral lacunar infarctions. There is however abnormal signal intensity also in the left putamen which is isointense on T1 and hypointense on the gradient echo, diffusion and FLAIR images with slight increased T2. There is some slight increased density in this region on CT scan. A small hemorrhagic infarction is suspected. There is increased diffusion signal in the right posterior hall radiata consistent with an area of acute lacunar infarction. There is diffuse periventricular ischemic gliotic change. No midline shift or mass effect is evident. The cerebellopontine angles, cerebellum, and brainstem are unremarkable. There is increased T2 signal within the anjel consistent with ischemic lordosis. IMPRESSION: 1. Suspect a small hemorrhagic infarction in the left putamen. 2. Area of increased density in the right thalamus is felt to represent an area of calcification. 3. Small area of acute lacunar infarction in the right posterior hall radiata. 4. There are periventricular ischemic gliotic changes Critical result called to Dr. Caldera on 04/17/2018 3:05 PM.
== END ==
PROVIDERS: PCP Emergency Medicine; Visit Provider Emergency Medicine
DX: M62.89 Other specified disorders of muscle (principal); R93.0 Abnormal findings on diagnostic imaging of skull and head, not elsewhere classified
CPT/HCPCS: 70450; 70551